=== PATIENT | female | born 1930 | race Caucasian/White ===

== ENCOUNTER 2018-04-23 14:39 | Emergency (ER) | payer MEDICARE, OTHER ==
--- NOTE | 2018-04-23 15:06 | EDM.PDOC ---
ED HPI GENERAL MEDICAL PROBLEM - General Chief Complaint: General Stated Complaint: FALL Time Seen by Provider: 04/23/18 14:50 Source of Information: Reports: Patient, Family History Limitations: Reports: No Limitations - History of Present Illness INITIAL COMMENTS - FREE TEXT/NARRATIVE: This is a 88yo F who fell while trying to get up and injured her left knee and thigh. She was unable to put full weight and the pain is a 6/10. 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 She takes aspirin but no blood thinners. She denies any chest pain or shortness of breath. Onset: Sudden Duration: Hour(s): Location: Reports: Lower Extremity, Left Quality: Reports: Ache Severity: Severe Improves with: Reports: Immobilization Worsens with: Reports: Movement Associated Symptoms: Reports: No Other Symptoms left leg Pain Score (Numeric/FACES): 6 ED ROS GENERAL - Review of Systems Review Of Systems: ROS reveals no pertinent complaints other than HPI. ED EXAM, GENERAL - Physical Exam Exam: See Below Exam Limited By: No Limitations General Appearance: Alert, WD/WN, Mild Distress Eye Exam: Bilateral Eye: EOMI, PERRL Ears: Normal External Exam Nose: Normal Inspection Throat/Mouth: Normal Inspection Head: Atraumatic, Normocephalic Respiratory/Chest: No Respiratory Distress Cardiovascular: Normal Peripheral Pulses, Regular Rate, Rhythm Peripheral Pulses: 2+: Dorsalis Pedis (L), Dorsalis Pedis (R) GI/Abdominal: Normal Bowel Sounds Extremities: Leg Pain Neurological: Alert, Oriented, CN II-XII Intact Course - Vital Signs Last Recorded V/S: Last Vital Signs Temp 37.6 C 04/23/18 15:11 Pulse 97 04/23/18 15:11 Resp 27 H 04/23/18 15:11 BP 104/64 04/23/18 15:11 Pulse Ox 94 L 04/23/18 15:11 - Orders/Labs/Meds Orders: Active Orders 24 hr Category Date Time Status Femur Min 2V Lt [CR] Stat Exams 04/23/18 15:02 Taken Departure - Departure Time of Disposition: 16:45 Disposition: Home, Self-Care 01 Condition: Fair Clinical Impression: Femur fracture, left Qualifiers: Encounter type: initial encounter Femur location: shaft Fracture type: closed Fracture morphology: other fracture Qualified Code(s): S72.392A - Other fracture of shaft of left femur, initial encounter for closed fracture - Discharge Information Instructions: Femoral Shaft Fracture Referrals: PCP,None [Primary Care Provider] - Forms: ED Department Discharge Additional Instructions: Take pain medication as needed. If you have any questions or concerns please call us at [phone]. Counseled on Orthopedics f/u on Wednesday. Discussed immobilization and no weight bearing until cleared. Discussed need for f/u xray or CT. Patient agrees on close monitoring and f/u evaluation with PCP and Ortho. - My Orders Last 24 Hours: My Active Orders 04/23/18 15:02 Femur Min 2V Lt [CR] Stat - Assessment/Plan Last 24 Hours: My Active Orders 04/23/18 15:02 Femur Min 2V Lt [CR] Stat
[2018-04-23 15:40] VITALS: BP 104/64
[2018-04-23] MEDS ORDERED: Acetaminophen/HYDROcodone 325-5 MG Tab ONE (16:45)
--- NOTE | 2018-04-24 10:38 | CR ---
LEFT FEMUR, 04/23/18 The patient is status post left total knee arthroplasty. There is an oblique lucency through the distal femur that does extend to the femoral component suspicious for a nondisplaced fracture. It is only seen on the lateral view. No other evidence of acute fracture or dislocation. There is soft tissue density in the suprapatellar bursa region consistent with a joint effusion. [id number] [facility] [facility]
== END 2018-04-23 16:57 | disposition home or self-care (01) ==
LOC: LB.ED 14:39
DX: S72.392A Other fracture of shaft of left femur, initial encounter for closed fracture (principal); W18.39XA Other fall on same level, initial encounter
CPT/HCPCS: 73552; 99283; A9270